=== PATIENT | female | born 1995 | race African-American/Black ===

== ENCOUNTER 2016-08-21 21:46 | Emergency (ER) | payer MEDICAID ==
[~2016-08-21] VITALS: Ht 162.6 cm; Wt 73.0 kg
[2016-08-21 22:07] VITALS: BP 109/67
== END 2016-08-22 05:57 | disposition home or self-care (01) ==
LOC: ER 08-22 04:03
DX: J03.90 Acute tonsillitis, unspecified (principal); J02.9 Acute pharyngitis, unspecified; R51 Headache; F12.10 Cannabis abuse, uncomplicated
CPT/HCPCS: 99283